=== PATIENT | male | born 1945 ===

== ENCOUNTER 2021-03-05 16:16 | Observation (INO) | payer MEDICARE, BC ==
[2021-03-05] MEDS ORDERED: HYDROmorphone 0.5 MG/0.5 ML Syringe IVPUSH ONE ×3 (16:32→18:35)
[2021-03-05] MEDS ORDERED: Sodium Chloride 0.9% 10 ML Syringe FLUSH PRN ×2 (16:32→17:01)
[2021-03-05] MEDS ORDERED: Ondansetron 4 MG/2 ML SDV ONE (16:33)
[2021-03-05] MEDS ORDERED: Ondansetron 4 MG/2 ML SDV IVPUSH ONE (16:33)
[2021-03-05] MEDS ORDERED: LORazepam 2 MG/ML SDV ONE (16:34)
[2021-03-05] MEDS ORDERED: HYDROmorphone 1 MG/ML Syringe ONE (16:34)
[2021-03-05] MEDS ORDERED: LORazepam 2 MG/ML SDV IVPUSH ONE (16:37)
[2021-03-05] MEDS ORDERED: Sodium Chloride 0.9% 1,000 ML IV SCH (16:45)
[2021-03-05] MEDS ORDERED: Iopamidol 612 MG/ML 50 ML SDV IVPUSH ONE (17:01)
[2021-03-05] MEDS ORDERED: Iopamidol 612 MG/ML 100 ML Bottle IVPUSH ONE (17:01)
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
--- NOTE | 2021-03-05 17:33 | CT ---
Head CT Technique: Multiple axial sections through the brain were obtained. Reconstructed coronal and sagittal images were obtained. Comparison: Prior head CT study of 10/19/13 is available. Findings: Ventricles along with basal cisterns and sulci over the convexities are mildly prominent. Atrophy has slightly increased in prominence from prior head CT exam. No abnormal parenchymal densities are seen. No evidence of intracranial hemorrhage. No midline shift or mass-effect is seen. Bone window settings were reviewed. Visualized mastoid sinuses show nothing acute. There is a small retention cyst seen within the left maxillary sinus. Slight mucosal thickening is seen within the ethmoid sinuses and frontal sinuses which is likely chronic. No acute calvarial abnormality is appreciated. Impression: 1. Sinus findings which are most likely chronic. 2. Mild generalized atrophy. 3. No acute intracranial abnormality is appreciated. Diagnostic code #2
--- NOTE | 2021-03-05 17:43 | CT ---
CT cervical spine Technique: Multiple axial sections were obtained from above C1 inferiorly to the mid T3 level. Reconstructed coronal and sagittal images were obtained. Comparison: No prior cervical spine imaging is available. Findings: There is mild degenerative change anteriorly at C1-2. There is fairly severe disc space narrowing noted at C5-6 and C6-7. Mild spondylolisthesis is noted at C4-5. This is due to degenerative apophyseal change. Other degenerative apophyseal change is scattered throughout the cervical and upper thoracic spine. There is ligamentum nuchal calcification being seen. Slight anterior scattered endplate osteophytes are seen. No bony central or bony neural foraminal stenosis is seen. No acute fracture is appreciated. AP view shows degenerative change within the uncovertebral joints at C5-6 and C6-7. Slight scoliosis is noted. Impression: 1. Degenerative change as noted above with mild scoliosis. 2. No acute fracture or acute subluxation is seen. Diagnostic code #2
--- NOTE | 2021-03-05 17:45 | CR ---
Chest: Portable view of the chest was obtained. Comparison: Prior chest x-ray of 06/27/20. Small pneumothorax is seen overlying the left lung apex. Mild atelectasis is seen within the left lung base. Lungs otherwise appear to be clear. Heart size is normal. Slight tortuosity of the thoracic aorta is seen. Left shoulder prosthesis is noted. Chronic rotator cuff tear is noted within the right shoulder. No definite acute osseous abnormality is seen. Impression: 1. Small pneumothorax overlying the left upper lung. 2. Left basilar atelectasis. 3. Other findings as noted above. No other acute finding is appreciated on portable chest x-ray. Diagnostic code #3
--- NOTE | 2021-03-05 18:03 | CT ---
CT chest Technique: Multiple axial chest were. Intravenous contrast was utilized. Reconstructed coronal and sagittal images were obtained. Comparison: No prior chest imaging is available. Findings: Moderately large hiatal hernia is seen. Thoracic aorta shows no aneurysm. Small lymph nodes are seen within the mediastinum which are believed to be within normal limits. No axillary adenopathy is seen. No pericardial thickening is seen. Lung window settings were reviewed which show a small left-sided pneumothorax. There are areas of increased density within both lung bases which most likely represent areas of atelectasis, findings are worse on the left side. Lungs otherwise are clear with no acute parenchymal change. Bone window settings were reviewed which show an old rib fracture with callus involving the right 11th and 12th rib. I do not see a definite acute rib fracture. Very slight compression deformities are seen within the thoracic spine which I believe are most likely old. Left shoulder prosthesis is noted. Reconstructed sagittal images show no sternal fracture. Impression: 1. Small left-sided pneumothorax. 2. Atelectasis within both lung bases, worse on the left side. 3. Bone findings which are felt to be nonacute as described above. Diagnostic code #3 CT abdomen and pelvis Technique: Multiple axial sections were obtained from above the dome of the diaphragm inferiorly through the pubic symphysis. Intravenous contrast was utilized. Delayed images were also obtained through the pelvis. Reconstructed coronal and sagittal images were obtained. Comparison: No prior CT abdomen or pelvis study is available. Findings: Moderately large hiatal hernia is noted. Liver shows two adjacent cysts within the right lobe. Together these cystic areas measure 5.2 cm. No acute abnormality is seen within the liver. Spleen appears within normal limits. Pancreas shows no discrete abnormality. Gallbladder contains no calcified gallstones. Adrenal glands show no nodule. Kidneys show symmetric contrast enhancement. There is an extrarenal pelvis within the right kidney. Right ureter is prominent in size down to the bladder. No definite obstructing areas are seen on this study to cause this finding. Left ureter is normal in size. Cyst is noted within the upper left kidney measuring 3.3 cm. Kidneys otherwise show no additional parenchymal abnormality. Abdominal aorta shows mild atherosclerotic change with no aneurysm. No retroperitoneal adenopathy is seen. Appendix is seen which is normal in size. No mesenteric abnormalities are seen. No pelvic mass or adenopathy is seen. Bilateral hip prostheses are noted causing artifact within the pelvis. Delayed images were obtained which show contrast within the left ureter as well as minimal contrast within the bladder. Bone window settings were reviewed. Lumbar spine shows disc space narrowing, endplate osteophytes and apophyseal degenerative change. No discrete fracture is seen. Degenerative change is also noted within the sacroiliac joints. Impression: 1. Large extrarenal pelvis within the right kidney with dilated right ureter down to the bladder. Etiology of this finding is not seen on this exam. 2. Bone findings as noted above with bilateral hip prostheses causing artifact. 3. Cyst within the liver and left kidney. 4. Moderately large hiatal hernia. 4. No acute abnormality is appreciated on CT study of the abdomen and pelvis. Diagnostic code #3
[2021-03-05] MEDS ORDERED: HYDROmorphone 0.5 MG/0.5 ML Syringe IVPUSH PRN (20:09)
[2021-03-05] MEDS ORDERED: Docusate Sodium 100 MG Cap PO PRN (20:09)
[2021-03-05] MEDS ORDERED: oxyCODONE 5 MG Tab PO PRN (20:09)
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
[2021-03-05] MEDS: Ibuprofen 800 MG Tab PO SCH (21:54)
[2021-03-06] MEDS: Ibuprofen 800 MG Tab PO SCH ×2 (03:38→08:13)
[2021-03-06] MEDS ORDERED: Sodium Chloride 0.9% 1,000 ML IV SCH (08:15)
--- NOTE | 2021-03-06 09:39 | CR ---
Chest: Portable view of the chest was obtained. Comparison: Prior chest x-ray of 03/05/21. Heart size and mediastinum are within normal limits. There is linear density within left lung base as an interval change from prior study compatible with increasing atelectasis. Lungs otherwise are clear. Left shoulder prosthesis is seen. Chronic rotator cuff tear is seen within the right shoulder. Small left apical pneumothorax remains without significant change. Impression: 1. Slight increasing atelectasis within the left lung base. 2. Small left apical pneumothorax remains without definite change. 3. Nothing acute is otherwise seen. Diagnostic code #3
[2021-03-06 11:55] VITALS: BP 122/84; PULSE 73
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
== END 2021-03-06 14:28 | disposition home or self-care (01) ==
LOC: JD.ED 16:16 → JD.MS 18:56
PROVIDERS: ADMIT Surgery; ATTEND Surgery
DX: J93.9 Pneumothorax, unspecified (principal); E78.00 Pure hypercholesterolemia, unspecified; Z88.5 Allergy status to narcotic agent; Z20.822 Contact with and (suspected) exposure to COVID-19; Z79.899 Other long term (current) drug therapy; Z88.8 Allergy status to other drugs, medicaments and biological substances; Z87.891 Personal history of nicotine dependence; Z98.890 Other specified postprocedural states
CPT/HCPCS: 36415; 70450; 70450-26; 71045; 71045-26; 71260; 71260-26; 72125; 72125-26; 74177; 74177-26; 80053; 85025; 86850; 86900; 86901; 94760; 96374; 96375; 96376; 99284; 99285-25; A9270-GY; G0378; J1170; J2060; J2405; J7030; Q9967; U0002